=== PATIENT | female | born 1940 | race African-American/Black ===

== ENCOUNTER 2019-07-03 10:28 | Emergency (ER) | payer MEDICARE ==
[~2019-07-03] VITALS: Ht 152.4 cm; Wt 59.0 kg
[2019-07-03] MEDS ORDERED: SODIUM CHLORIDE 0.9% 1,000 ML IV ONE (10:59)
[2019-07-03 11:30] LABS: BASOPHILS % 0.1 % (0.0-2.0); EOSINOPHILS % 0.1 % (0.0-5.0); HEMATOCRIT. 43.9 % (36.0-48.0); HEMOGLOBIN. 14.5 g/dL (12.0-16.0); LYMPHOCYTES % 9.8 % (20.0-50.0); MEAN CORPUSCULAR HEMOGLOBIN 34.7 pg (28.0-32.0); MEAN CORPUSCULAR VOLUME 104.8 fL (81.0-99.0); MEAN PLATELET VOLUME 7.8 fl (7.4-10.4); MONOCYTES % 5.5 % (2.0-8.0); NEUTROPHILS % 84.5 % (40.0-76.0); PLATELET 277 x1000/uL (130-400); RED BLOOD CELL COUNT 4.19 mill/uL (4.2-5.4); RED CELL DISTRIBUTION WIDTH 14.4 % (11.6-14.6)
[2019-07-03 11:32] LABS: CHLORIDE 107 mEq/L (98-107)
[2019-07-03 11:35] LABS: INR 1.1
[2019-07-03 11:38] LABS: ETHANOL BLOOD < 10 mg/dL
[2019-07-03] MEDS ORDERED: SODIUM CHLORIDE 0.9% 1000ML BAG (SEPSIS BOLUS) IV ONE (12:15)
[2019-07-03] MEDS ORDERED: CEFTRIAXONE 1 G PREMIX 50 ML IV ONE (12:15)
[2019-07-03] MEDS ORDERED: AZITHROMYCIN 500 MG in DEXT 5% WATER 250 ML IV ONE (12:15)
[2019-07-03] MEDS ORDERED: DILTIAZEM HCL 5MG/ML 5ML VIAL IV ONE (12:15)
[2019-07-03 13:23] LABS: CLARITY URINE TURBID (CLEAR); KETONES URINE 1+ (NEGATIVE); LEUKOCYTE ESTERASE URINE 3+ (NEGATIVE); NITRITE URINE POSITIVE (NEGATIVE); OCCULT BLOOD URINE 3+ (NEGATIVE); PROTEIN URINE 1+ (NEGATIVE); SPECIFIC GRAVITY URINE 1.027 (1.005-1.030)
[2019-07-03 13:30] LABS: *AMPHETAMINES SCREEN URINE NEGATIVE (NEGATIVE); *BARBITURATES SCREEN URINE NEGATIVE (NEGATIVE)
[2019-07-03 13:31] LABS: *BENZODIAZEPINES SCREEN URINE NEGATIVE (NEGATIVE); CANNABINOID URINE SCREEN NEGATIVE (NEGATIVE); METHADONE URINE SCREEN NEGATIVE (NEGATIVE); OPIATES URINE SCREEN NEGATIVE (NEGATIVE); PHENCYCLIDINE URINE SCREEN NEGATIVE (NEGATIVE)
[2019-07-03 13:33] LABS: *COCAINE SCREEN URINE NEGATIVE (NEGATIVE)
[2019-07-03 13:36] LABS: COLOR URINE DARK YELLOW (YELLOW)
[2019-07-03 15:20] VITALS: BP 121/71
== END 2019-07-03 17:11 | disposition short-term general hospital (02) ==
LOC: ER 11:02 → CANBEDREQ 16:00 → ER 17:11
DX: A41.9 Sepsis, unspecified organism (principal); N39.0 Urinary tract infection, site not specified; R40.4 Transient alteration of awareness; T76.01XA Adult neglect or abandonment, suspected, initial encounter; R62.7 Adult failure to thrive; Z68.25 Body mass index [BMI] 25.0-25.9, adult
CPT/HCPCS: 36415; 71045; 76937; 80053; 80305; 80320; 81003; 82962; 83605; 83880; 84145; 85025; 85610; 87040; 87086; 93005; 96365; 96368; 96375; 99291; C1725; J0456; J0696; J3490; J7030; J7060; G0480